=== PATIENT | male | born 1990 | race Caucasian/White ===

== ENCOUNTER 2017-12-17 10:54 | Inpatient (IN) | payer MEDICAID, OTHER ==
[~2017-12-17] VITALS: Ht 162.6 cm; Wt 70.1 kg
[2017-12-17] VITALS (12 sets, daily range): BP systolic 152–206; BP diastolic 92–116
[2017-12-17] MEDS ORDERED: ONDANSETRON HCL 4 MG/2 ML VIAL IV ONE (11:45)
[2017-12-17] MEDS ORDERED: MORPHINE SULFATE 4 MG/ML SYR/VIAL IV ONE (11:45)
[2017-12-17] MEDS ORDERED: ACETAMINOPHEN 500 MG TAB PO PRN (13:00)
[2017-12-17] MEDS ORDERED: PROMETHAZINE HCL 25 MG/ML 1ML IV PRN (13:00)
[2017-12-17] MEDS ORDERED: DEXTROSE (50%) 50ML SYRG IV PRN (13:00)
[2017-12-17] MEDS ORDERED: MORPHINE SULFATE 4 MG/ML SYR/VIAL IV PRN (13:00)
[2017-12-17] MEDS ORDERED: LORazepam 0.5 MG TAB PO PRN (13:00)
[2017-12-17] MEDS ORDERED: TEMAZEPAM 15 MG CAP PO PRN (13:00)
[2017-12-17] MEDS ORDERED: NITROGLYCERIN 0.4 MG SL TAB SL PRN (13:00)
[2017-12-17 13:22] LABS: Eosinophils # (auto) 0.1 uL; Eosinophils % (auto) 0.8 % (0.0-7.0); Monocytes # (auto) 1.2 uL
[2017-12-17 13:24] LABS: Basophils # (auto) 0.1 uL; Basophils % (auto) 0.9 % (0.0-2.0); Hematocrit 25.4 % (41.0-53.0); Hemoglobin 8.3 g/dL (13.5-17.5); Lymphocytes # (auto) 1.6 uL; Lymphocytes % (auto) 10.1 % (10.0-50.0); Mean Corpuscular Hemoglobin 30.4 pg (28.0-32.0); Mean Corpuscular Hgb Conc. 32.5 g/dL (32.0-36.0); Mean Corpuscular Volume 93.5 fL (80.0-100.0); Monocytes % (auto) 8.1 % (0.0-12.0); Neutrophils # (auto) 12.3 uL; Neutrophils % (auto) 80.1 % (37.0-80.0); Nucleated Red Blood Cells % 0.1 %; Platelet Count (auto) 421 10^3/uL (140-450); Red Blood Cells 2.72 10^6/uL (4.5-5.90); Red Cell Distribution Width 15.8 % (11.8-14.3); White Blood Cell 15.4 10^3/uL (4.4-10.8)
[2017-12-17] MEDS ORDERED: ENALAPRIL MALEATE 2.5 MG TAB PO ONE (13:30)
[2017-12-17] MEDS ORDERED: CARVEDILOL 3.125 MG TAB PO ONE (13:30)
[2017-12-17] MEDS ORDERED: FUROSEMIDE 40 MG/4 ML VIAL IV ONE (13:30)
[2017-12-17] MEDS ORDERED: PIPERACILLIN-TAZOB 2.25GM 50 ML IV ONE (13:45)
[2017-12-17] MEDS ORDERED: VANCOMYCIN PER PHARMACY 0 MG IV SCH (13:45)
[2017-12-17 13:47] LABS: Lactic Acid w/Reflex 2.6 mmol/L (0.4-2.0)
[2017-12-17 13:49] LABS: Alanine Aminotransferase 108 U/L (16-61); Albumin 2.7 g/dL (3.4-5.0); Alkaline Phosphatase 225 U/L (45-117); Anion Gap 12 (5-15); Aspartate Aminotransferase 63 U/L (15-37); BUN/Creatinine Ratio 7.9; Bilirubin, Total 0.3 mg/dL (0.2-1.0); Blood Urea Nitrogen 55 mg/dL (7-18); Calcium 8.9 mg/dL (8.5-10.1); Carbon Dioxide 24 mmol/L (21-32); Chloride 97 mmol/L (98-107); GFR African American 12 mL/min; GFR Non-African American 10 mL/min; Glucose 265 mg/dL (74-106); Potassium 5.1 mmol/L (3.5-5.1); Sodium 133 mmol/L (136-145); Total Protein 6.8 g/dL (6.4-8.2)
[2017-12-17] MEDS ORDERED: FUROSEMIDE INJECTION 10 ML ONE (14:51)
[2017-12-17] MEDS ORDERED: NITROGLYCERIN 0.4 MG SL TAB SL ONE (14:56)
[2017-12-17] MEDS ORDERED: NITROGLYCERIN 50MG/250ML 250 ML IV PRN (15:00)
[2017-12-17] MEDS ORDERED: LABETALOL HCL 5 MG/ML ML 20ML VIAL IV ONE (15:15)
[2017-12-17] MEDS ORDERED: FUROSEMIDE 100 MG/10ML VIAL IV ONE (15:15)
[2017-12-17] MEDS ORDERED: VANCOMYCIN 1GM/250ML 250 ML IV ONE ×2 (16:00→20:00)
[2017-12-17] MEDS ORDERED: EPOETIN ALFA 10,000 UNIT/1 ML VIAL IV ONE (17:00)
[2017-12-17] MEDS: InsuLIN REG 1unit/0.01ml Soln (100units/ml) SC SCH ×2 (17:00→22:00)
[2017-12-17] MEDS: ACCU-CHEK COMFORT CURVE STRIP VI SCH ×2 (17:00→22:20)
[2017-12-17] MEDS: FUROSEMIDE 40 MG/4 ML VIAL IV SCH (18:00)
[2017-12-17] MEDS: PIPERACILLIN-TAZOB 2.25GM 50 ML IV SCH (22:10)
[2017-12-17] MEDS: CARVEDILOL 3.125 MG TAB PO SCH (22:13)
[2017-12-18] VITALS (22 sets, daily range): BP systolic 124–171; BP diastolic 69–115
[2017-12-18] MEDS ORDERED: FURO40TA4 PO (00:02)
[2017-12-18] MEDS ORDERED: ASPI81CH43 GT (00:02)
[2017-12-18] MEDS ORDERED: AMLO5TAB2 PO (00:02)
[2017-12-18] MEDS ORDERED: BENA20TA14 PO (00:02)
[2017-12-18] MEDS ORDERED: CALC667C PO (00:02)
[2017-12-18] MEDS ORDERED: ESCI10TA53 PO (00:02)
[2017-12-18] MEDS ORDERED: ALPR0.5T7 PO (00:02)
[2017-12-18] MEDS ORDERED: ATOR1TAB PO (00:02)
[2017-12-18] MEDS ORDERED: DOCU100T15 PO (00:02)
[2017-12-18] MEDS ORDERED: HYDR-4683 PO (00:13)
[2017-12-18] MEDS ORDERED: LACO150T PO (00:13)
[2017-12-18] MEDS ORDERED: METO-158 PO (00:13)
[2017-12-18] MEDS ORDERED: RIS1T PO (00:13)
[2017-12-18] MEDS ORDERED: ZONI100C43 PO (00:45)
[2017-12-18] MEDS ORDERED: cloNIDine HCL 0.1 MG TAB PO ONE (02:45)
[2017-12-18 04:56] LABS: Basophils # (auto) 0.1 uL; Eosinophils # (auto) 0.2 uL; Eosinophils % (auto) 1.6 % (0.0-7.0); Lymphocytes # (auto) 1.3 uL; Lymphocytes % (auto) 10.9 % (10.0-50.0); Monocytes # (auto) 0.8 uL; White Blood Cell 12.3 10^3/uL (4.4-10.8)
[2017-12-18 04:57] LABS: Basophils % (auto) 0.7 % (0.0-2.0); Hematocrit 23.4 % (41.0-53.0); Hemoglobin 7.9 g/dL (13.5-17.5); Mean Corpuscular Hemoglobin 31.2 pg (28.0-32.0); Mean Corpuscular Hgb Conc. 33.8 g/dL (32.0-36.0); Mean Corpuscular Volume 92.4 fL (80.0-100.0); Monocytes % (auto) 6.7 % (0.0-12.0); Neutrophils # (auto) 9.8 uL; Neutrophils % (auto) 80.1 % (37.0-80.0); Platelet Count (auto) 374 10^3/uL (140-450); Red Blood Cells 2.53 10^6/uL (4.5-5.90); Red Cell Distribution Width 15.7 % (11.8-14.3)
[2017-12-18 05:38] LABS: Albumin 2.8 g/dL (3.4-5.0); BUN/Creatinine Ratio 6.3; Bilirubin, Total 0.6 mg/dL (0.2-1.0); Calcium 9.2 mg/dL (8.5-10.1); Total Protein 6.8 g/dL (6.4-8.2)
[2017-12-18] MEDS: FUROSEMIDE 40 MG/4 ML VIAL IV SCH ×2 (06:20→17:39)
[2017-12-18] MEDS: HYDROcodone-ACET 5/325MG TAB PO PRN ×2 (06:28→18:51)
[2017-12-18] MEDS: InsuLIN REG 1unit/0.01ml Soln (100units/ml) SC SCH ×4 (07:00→21:59)
[2017-12-18] MEDS: ACCU-CHEK COMFORT CURVE STRIP VI SCH ×4 (08:00→20:00)
[2017-12-18] MEDS: NITROGLYCERIN 0.2MG/HR TOPICAL PATCH TD SCH (09:41)
[2017-12-18] MEDS: PIPERACILLIN-TAZOB 2.25GM 50 ML IV SCH (09:41)
[2017-12-18] MEDS ORDERED: ENALAPRIL MALEATE 2.5 MG TAB PO SCH (10:00)
[2017-12-18] MEDS: CARVEDILOL 3.125 MG TAB PO SCH (10:00)
[2017-12-18] MEDS: MORPHINE SULFATE 4 MG/ML SYR/VIAL IV PRN ×2 (15:01→20:22)
[2017-12-18] MEDS: CALCIUM ACETATE 667 MG CAP PO SCH (17:39)
[2017-12-18 21:05] LABS: Urine Bacteria NONE SEEN /hpf (None Seen); Urine Blood Negative /uL (Negative); Urine Mucus FEW (None Seen); Urine Specific Gravity 1.007 (1.001-1.035); Urine WBC 3 /hpf (0 - 3)
[2017-12-18 21:27] LABS: Alcohol, Urine < 3.0 mg/dL (0-5); Amphetamine Screen, Urine NEGATIVE (NEGATIVE); Barbiturate Scree,Urine NEGATIVE (NEGATIVE); Benzodiazephine Screen, Urine POSITIVE (NEGATIVE); Cannabinoid Screen, Urine NEGATIVE (NEGATIVE); Cocaine Screen, Urine NEGATIVE (NEGATIVE); Opiate Scree,Urine NEGATIVE (NEGATIVE); Phencyclidine Screen, Urine NEGATIVE (NEGATIVE)
[2017-12-18] MEDS: METOPROLOL TARTRATE 25 MG TAB PO SCH (21:57)
[2017-12-18] MEDS: LACOSAMIDE 50 MG TAB PO SCH ×2 (21:58→22:00)
[2017-12-18] MEDS ORDERED: VIMPAT 150 MG PO SCH (22:00)
[2017-12-19] VITALS (7 sets, daily range): BP systolic 140–158; BP diastolic 76–102
[2017-12-19] MEDS: MORPHINE SULFATE 4 MG/ML SYR/VIAL IV PRN ×3 (00:30→08:54)
[2017-12-19] MEDS: ACCU-CHEK COMFORT CURVE STRIP VI SCH ×4 (04:00→14:10)
[2017-12-19] MEDS: FUROSEMIDE 40 MG/4 ML VIAL IV SCH (06:11)
[2017-12-19] MEDS: InsuLIN REG 1unit/0.01ml Soln (100units/ml) SC SCH ×2 (06:44→11:30)
[2017-12-19 06:46] LABS: Albumin 2.4 g/dL (3.4-5.0); BUN/Creatinine Ratio 6.8; Calcium 8.6 mg/dL (8.5-10.1); Potassium 4.5 mmol/L (3.5-5.1)
[2017-12-19 06:48] LABS: Bilirubin, Total 0.5 mg/dL (0.2-1.0); Total Protein 6.5 g/dL (6.4-8.2)
[2017-12-19 06:49] LABS: Basophils # (auto) 0.1 uL; Basophils % (auto) 1.6 % (0.0-2.0); Eosinophils # (auto) 0.3 uL; Hematocrit 22.9 % (41.0-53.0); Hemoglobin 7.9 g/dL (13.5-17.5); Lymphocytes # (auto) 1.6 uL; Lymphocytes % (auto) 25.3 % (10.0-50.0); Mean Corpuscular Hemoglobin 31.6 pg (28.0-32.0); Mean Corpuscular Hgb Conc. 34.4 g/dL (32.0-36.0); Mean Corpuscular Volume 91.8 fL (80.0-100.0); Monocytes # (auto) 0.7 uL; Monocytes % (auto) 10.1 % (0.0-12.0); Neutrophils # (auto) 3.8 uL; Nucleated Red Blood Cells % 0.2 %; Platelet Count (auto) 349 10^3/uL (140-450); Red Blood Cells 2.49 10^6/uL (4.5-5.90); Red Cell Distribution Width 15.4 % (11.8-14.3); White Blood Cell 6.5 10^3/uL (4.4-10.8)
[2017-12-19] MEDS: CALCIUM ACETATE 667 MG CAP PO SCH ×2 (08:22→12:00)
[2017-12-19] MEDS ORDERED: ALPR1TAB2 PO (08:30)
[2017-12-19] MEDS: LACOSAMIDE 50 MG TAB PO SCH (09:16)
[2017-12-19] MEDS: METOPROLOL TARTRATE 25 MG TAB PO SCH (09:19)
[2017-12-19] MEDS ORDERED: ALPRAZolam 0.5 MG TAB PO SCH (10:00)
[2017-12-19] MEDS ORDERED: CITALOPRAM HYDROBR 20 MG TAB PO SCH (10:00)
[2017-12-19] MEDS ORDERED: amLODIPine BESYLATE 5 MG TAB PO SCH (10:00)
[2017-12-19] MEDS: NITROGLYCERIN 0.2MG/HR TOPICAL PATCH TD SCH (10:00)
[2017-12-19] MEDS: HYDROcodone-ACET 5/325MG TAB PO PRN (14:08)
== END 2017-12-19 16:55 | disposition home or self-care (01) | DRG 469 ==
LOC: ER 10:54 → OVERFLOW 10:55 → DOU IN ICU 14:08 → EAST 12-18 22:54 → TELE-EAST 12-18 23:40
PROVIDERS: ADMIT Internal Medicine; ATTEND Internal Medicine
PROC: 5A09357 Assistance with Respiratory Ventilation, Less than 24 Consecutive Hours, Continuous Positive Airway Pressure (ICD-10-PCS; principal; 2017-12-17)
PROC: 5A1D70Z Performance of Urinary Filtration, Intermittent, Less than 6 Hours Per Day (ICD-10-PCS; 2017-12-17)
PROC: 5A09357 Assistance with Respiratory Ventilation, Less than 24 Consecutive Hours, Continuous Positive Airway Pressure (ICD-10-PCS; 2017-12-18)
PROC: 5A09357 Assistance with Respiratory Ventilation, Less than 24 Consecutive Hours, Continuous Positive Airway Pressure (ICD-10-PCS; 2017-12-19)
PROC: 30233N1 Transfusion of Nonautologous Red Blood Cells into Peripheral Vein, Percutaneous Approach (ICD-10-PCS; 2017-12-19)
PROC: 5A1D70Z Performance of Urinary Filtration, Intermittent, Less than 6 Hours Per Day (ICD-10-PCS; 2017-12-19)
DX: N17.0 Acute kidney failure with tubular necrosis (principal); J96.00 Acute respiratory failure, unspecified whether with hypoxia or hypercapnia; I50.33 Acute on chronic diastolic (congestive) heart failure; E44.0 Moderate protein-calorie malnutrition; I13.2 Hypertensive heart and chronic kidney disease with heart failure and with stage 5 chronic kidney disease, or end stage renal disease; N18.6 End stage renal disease; E87.5 Hyperkalemia; I16.0 Hypertensive urgency; D64.9 Anemia, unspecified; D63.8 Anemia in other chronic diseases classified elsewhere; Z96.41 Presence of insulin pump (external) (internal); R74.0 Nonspecific elevation of levels of transaminase and lactic acid dehydrogenase [LDH]; K59.00 Constipation, unspecified; E11.22 Type 2 diabetes mellitus with diabetic chronic kidney disease; E78.5 Hyperlipidemia, unspecified; F17.210 Nicotine dependence, cigarettes, uncomplicated; G40.909 Epilepsy, unspecified, not intractable, without status epilepticus; F41.9 Anxiety disorder, unspecified; M53.82 Other specified dorsopathies, cervical region; G89.4 Chronic pain syndrome; G47.00 Insomnia, unspecified; I16.1 Hypertensive emergency; I24.9 Acute ischemic heart disease, unspecified; Z79.4 Long term (current) use of insulin; Z99.2 Dependence on renal dialysis; Z90.49 Acquired absence of other specified parts of digestive tract; Z88.1 Allergy status to other antibiotic agents; Z68.26 Body mass index [BMI] 26.0-26.9, adult; Z88.8 Allergy status to other drugs, medicaments and biological substances
CPT/HCPCS: 36415; 36600; 71045; 80053; 80061; 80202; 80307; 81001; 82550; 82805; 82962; 83036; 83605; 83735; 83880; 84443; 84484; 85025; 85379; 85652; 86141; 86850; 86900; 86901; 86920; 87040; 87081; 90935; 93005; 93306; 94660; 96365; 96367; 96375; J0885; J1815; J2543

== ENCOUNTER 2017-12-19 19:02 | Emergency (ER) | payer MEDICAID ==
[~2017-12-19] VITALS: Ht 162.6 cm; Wt 70.4 kg
[~2017-12-19 19:02] MED LIST: ALPR0.5T7 PO; ALPR1TAB2 PO; AMLO5TAB2 PO; ASPI81CH43 GT; ATOR1TAB PO; BENA20TA14 PO; CALC667C PO; DOCU100T15 PO; ESCI10TA53 PO; FURO40TA4 PO; HYDR-4683 PO; LACO150T PO; METO-158 PO; RIS1T PO; ZONI100C43 PO
[2017-12-19 19:17] VITALS: BP 184/94
[2017-12-19 19:40] LABS: Basophils # (auto) 0.1 uL; Basophils % (auto) 1.6 % (0.0-2.0); Eosinophils # (auto) 0.3 uL; Eosinophils % (auto) 3.1 % (0.0-7.0); Hematocrit 31.4 % (41.0-53.0); Hemoglobin 10.6 g/dL (13.5-17.5); Lymphocytes # (auto) 1.4 uL; Lymphocytes % (auto) 16.3 % (10.0-50.0); Mean Corpuscular Hemoglobin 30.1 pg (28.0-32.0); Mean Corpuscular Hgb Conc. 33.7 g/dL (32.0-36.0); Mean Corpuscular Volume 89.2 fL (80.0-100.0); Monocytes # (auto) 0.6 uL; Monocytes % (auto) 6.9 % (0.0-12.0); Neutrophils % (auto) 72.1 % (37.0-80.0); Nucleated Red Blood Cells % 0.1 %; Platelet Count (auto) 443 10^3/uL (140-450); Red Blood Cells 3.52 10^6/uL (4.5-5.90); White Blood Cell 8.3 10^3/uL (4.4-10.8)
[2017-12-19 19:53] LABS: INR 0.98 (0.9-1.15); Partial Thromboplastin Time 28.1 sec (22.64-33.71); Prothrombin Time 10.7 sec (9.37-12.3)
[2017-12-19 19:56] LABS: Alanine Aminotransferase 175 U/L (16-61); Albumin 3.3 g/dL (3.4-5.0); Anion Gap 11 (5-15); Aspartate Aminotransferase 119 U/L (15-37); BUN/Creatinine Ratio 5.4; Blood Urea Nitrogen 32 mg/dL (7-18); Calcium 9.1 mg/dL (8.5-10.1); Carbon Dioxide 29 mmol/L (21-32); Chloride 95 mmol/L (98-107); GFR African American 15 mL/min; GFR Non-African American 12 mL/min; Glucose 213 mg/dL (74-106); Sodium 135 mmol/L (136-145)
[2017-12-19 20:01] LABS: Alkaline Phosphatase 222 U/L (45-117); Bilirubin, Total 0.6 mg/dL (0.2-1.0); Total Protein 8.7 g/dL (6.4-8.2)
[2017-12-19 20:06] LABS: Urine Bacteria FEW /hpf (None Seen); Urine Blood Negative /uL (Negative); Urine Specific Gravity 1.007 (1.001-1.035); Urine WBC 3 /hpf (0 - 3)
[2017-12-19 20:28] LABS: Alcohol, Urine < 3.0 mg/dL (0-5); Amphetamine Screen, Urine NEGATIVE (NEGATIVE); Barbiturate Scree,Urine NEGATIVE (NEGATIVE); Cannabinoid Screen, Urine POSITIVE (NEGATIVE); Cocaine Screen, Urine NEGATIVE (NEGATIVE); Opiate Scree,Urine NEGATIVE (NEGATIVE); Phencyclidine Screen, Urine NEGATIVE (NEGATIVE)
[2017-12-19 20:31] LABS: Benzodiazephine Screen, Urine POSITIVE (NEGATIVE)
== END 2017-12-19 20:00 | disposition left against medical advice (07) ==
LOC: ER 19:02
DX: R06.02 Shortness of breath (principal); Z53.21 Procedure and treatment not carried out due to patient leaving prior to being seen by health care provider
CPT/HCPCS: 36415; 71046; 80053; 80307; 81001; 82962; 83880; 84484; 85025; 85610; 85730; 93005